=== PATIENT | female | born 1975 | race Caucasian/White ===

== ENCOUNTER 2019-11-29 14:42 | Inpatient (IN) | payer BC ==
[~2019-11-29] VITALS: Ht 157.5 cm; Wt 117.5 kg
[2019-11-29] MEDS ORDERED: ONDA4TAB11 PO (18:17)
[2019-11-29] MEDS ORDERED: OMEP40CA13 PO (18:17)
[2019-11-29] MEDS ORDERED: AMPH15TA2 PO (18:17)
[2019-11-29] MEDS ORDERED: DIAZ10TA PO ×2 (18:17)
[2019-11-29] MEDS ORDERED: QUET100T PO (18:17)
[2019-11-29] MEDS ORDERED: L-NO1TBD16 PO (18:17)
[2019-11-29] MEDS ORDERED: BUPR-51 PO (18:17)
[2019-11-29] MEDS ORDERED: SODI56GE9 DT (18:17)
[2019-11-29] MEDS ORDERED: HYDR2TAB4 PO (18:17)
[2019-11-29] MEDS ORDERED: NALO4SPR NS (18:17)
[2019-11-29] MEDS ORDERED: LAMO200T10 PO (18:17)
[2019-11-29] MEDS ORDERED: METF-494 PO (18:17)
[2019-11-29] MEDS ORDERED: FENT1PAT5 TD (18:17)
[2019-11-29] MEDS ORDERED: ACET-2605 PO (18:17)
--- NOTE | 2019-11-29 18:21 | NUR ---
Patient came around 525pm via ambulance with 2 EMT in stable condition.AOx4. Allergy to NSAIDS. Full code. DX: S/P left knee Arthroplasty. skin abrasion on left heel noted. no drainage, dry and no foul smell, no redness noted. Left knee operation covered with surgical dressing,dry and intact. picture taken. Patient complaint of pain. MD Alcantar and MD Garcia notified. Medrecon relayed to MD Alcantar. MD Garcia ordered pain medication for pain management. Nasal swab for MRSA test will send to lab. will continue monitor
[2019-11-29] MEDS ORDERED: HYDROMORPHONE HCL 2 MG TABLET PO PRN (18:45)
[2019-11-29] MEDS ORDERED: ONDANSETRON ODT 4 MG TAB.RAPDIS SL PRN (18:45)
[2019-11-29] MEDS ORDERED: METF-440 PO (19:11)
[2019-11-29] MEDS ORDERED: BUPR75TA8 PO (19:13)
[2019-11-29] MEDS: HYDROCODONE/APAP 10-325 MG TABLET PO PRN (19:17)
--- NOTE | 2019-11-29 19:30 | NUR ---
Received patient awake and alert, busy talking on her cell phone. No s/s of pain/discomforts at this time. Left knee dressing clean, dry and intact with restricted mobility/flexion noted on affected area. Safety measures and fall precaution maintained. Seen and evaluated by Dr. Alcantar. Routine admission care continuos. Plan of care initiated.
[2019-11-29] MEDS ORDERED: ARIP10TA9 PO (19:34)
[2019-11-29 20:00] VITALS: BP 133/77
[2019-11-29] MEDS: LAMOTRIGINE 200 MG TABLET PO SCH (20:51)
[2019-11-29] MEDS: ARIPIPRAZOLE 10 MG TABLET PO SCH (20:51)
[2019-11-29] MEDS: DIAZEPAM 10 MG TABLET PO PRN (20:57)
[2019-11-29] MEDS: OXYCODONE HCL 10 MG TAB.SR.12H PO SCH (21:31)
[2019-11-29] MEDS ORDERED: ACETAMINOPHEN ES 500 MG TABLET PO SCH (22:00)
[2019-11-30] MEDS: HYDROCODONE/APAP 10-325 MG TABLET PO PRN ×3 (00:53→14:33)
[2019-11-30 04:00] VITALS: BP 132/78
[2019-11-30] MEDS: PANTOPRAZOLE SODIUM 40 MG TABLET.DR PO SCH (05:34)
[2019-11-30] MEDS: OXYCODONE HCL 10 MG TAB.SR.12H PO SCH ×2 (05:34→13:06)
--- NOTE | 2019-11-30 05:44 | NUR ---
Shift End Report: Vs stable. Medicated with [place] once the whole night and Oxycontin routine pain meds as ordered with moderate effect. Patient complaining that pain medications she's getting now is not suffice to relieve her pain considering that she's getting more stronger ones prior to coming here. Will endorse to oncoming nurse. All needs attended and met. No significant event reported all night. Slept in between care. Continue current rehab plan of care.
[2019-11-30 08:00] VITALS: BP 131/75
--- NOTE | 2019-11-30 08:00 | NUR ---
Patient in bed awake at this time, stating she is in pain and crying at the start of the shift. Explained to patient will give due pain pill before PT/OT. Pt. is AAO 4, able to express all needs. No acute distress. Vital signs stable. Left knee surgical site with original dressing. NO bleeding or any s/sx of infection noted. BLE heels elevated. Call light within easy reach and will continue with care.
[2019-11-30] MEDS: METFORMIN HCL 500 MG TABLET PO SCH ×2 (08:07→17:04)
[2019-11-30] MEDS: buPROPion 75 MG TABLET PO SCH ×3 (08:08→17:04)
[2019-11-30] MEDS ORDERED: [UNRECOGNIZED DRUG - OTHER] PO SCH (09:00)
[2019-11-30] MEDS ORDERED: buPROPion XL 150 MG TAB.SR.24H PO SCH (09:00)
[2019-11-30] MEDS ORDERED: [UNRECOGNIZED DRUG - OTHER] PO SCH (09:00)
[2019-11-30] MEDS ORDERED: Medication Not On Formulary EA (Omeprazole 40 MG) PO SCH (09:00)
[2019-11-30] MEDS ORDERED: AMPHET ASP PO SCH (09:00)
[2019-11-30] MEDS ORDERED: AMPHET PO SCH (09:00)
[2019-11-30] MEDS ORDERED: QUETIAPINE FUMARATE 100 MG TABLET PO PRN (09:00)
[2019-11-30] MEDS ORDERED: D AMPHET PO SCH (09:00)
[2019-11-30] MEDS: DIAZEPAM 10 MG TABLET PO PRN ×2 (09:42→20:25)
--- NOTE | 2019-11-30 10:00 | NUR ---
patient noted getting anxious and Valium 15mg PO administered and effective.
[2019-11-30] MEDS ORDERED: NALOXONE HCL 0.4 MG/ML AMPUL IV PRN (10:30)
--- NOTE | 2019-11-30 11:00 | NUR ---
Paged Dr. Garcia regarding patient's pain medication and adjustments.
[2019-11-30 14:13] LABS: *URINE HCG, QUAL NEGATIVE (NEGATIVE)
[2019-11-30 16:00] VITALS: BP 110/64
--- NOTE | 2019-11-30 18:09 | NUR ---
Patient in stable condition at this time. Did PT/OT during shift. Patient able to get up and sit on w/c for therapy, uses bed side commode. Patient seen by Dr. Garcia and with new orders for pain medications. Patient eating dinner at this time. Vital signs stable. NO c/o pain currently. Safety measures in place, call light left within easy reach and will continue with care.
--- NOTE | 2019-11-30 19:30 | NUR ---
Awake, alert during initial rounds and complaining about her pain medications that was not ordered/given. Presenting severe pain, irritability, malave, restless. and needy. Asking things at the same time, snacks, pain medications, bedside commode. Instructed patient to be patient and she'll get whatever she wants but in a one at a time manner. Ice pack placed on the left knee incision site to relieve/ease the pain while clarifying new pain meds ordered. Continue to monitor.
[2019-11-30] MEDS: HYDROMORPHONE HCL 2 MG TABLET PO PRN ×2 (19:50→23:35)
--- NOTE | 2019-11-30 19:50 | NUR ---
Dilaudid given as ordered/needed for complaint of pain. Will monitor. Snacks and drinks provided per her request.
[2019-11-30 20:00] VITALS: BP 109/67
[2019-11-30] MEDS: ARIPIPRAZOLE 10 MG TABLET PO SCH (20:23)
[2019-11-30] MEDS: FENTANYL 25 MCG/HR PATCH EACH TD SCH (20:23)
[2019-11-30] MEDS: LAMOTRIGINE 200 MG TABLET PO SCH (20:25)
[2019-12-01 04:00] VITALS: BP 129/70
[2019-12-01] MEDS: HYDROMORPHONE HCL 2 MG TABLET PO PRN ×4 (06:46→20:25)
[2019-12-01] MEDS: PANTOPRAZOLE SODIUM 40 MG TABLET.DR PO SCH (06:46)
--- NOTE | 2019-12-01 06:59 | NUR ---
Shift End Report: VS stable. Been medicated with Dilaudid as ordered and needed for pain with help besides Fentanyl patch. All needs attended and met. Continue to monitor. Continue current rehab plan of care. Left knee dressing intact and clean. Sleeping at this time.
--- NOTE | 2019-12-01 08:12 | NUR ---
Patient awake and eating breakfast right now, no acute distress or SOB noted. Vital signs stable for patient. Safety measures in place and will continue with care.
[2019-12-01] MEDS: buPROPion 75 MG TABLET PO SCH ×3 (08:26→17:53)
[2019-12-01] MEDS: METFORMIN HCL 500 MG TABLET PO SCH ×2 (08:26→17:53)
[2019-12-01 08:27] VITALS: BP 136/63
[2019-12-01] MEDS: DIAZEPAM 10 MG TABLET PO PRN ×2 (08:27→20:24)
[2019-12-01 14:34] VITALS: BP 114/62
--- NOTE | 2019-12-01 19:12 | NUR ---
Vital signs stable, all due meds and prn pain medications administered as ordered and scheduled. No c/O pain at this time. NO swelling or any s/sx of infection noted on left knee surgical site. patient on continuos PT/OT. Needs attended and met, safety measures in place, call light left at bed side, endorsed to next shift and will continue with care.
[2019-12-01 20:03] VITALS: BP 109/56
[2019-12-01] MEDS: LAMOTRIGINE 200 MG TABLET PO SCH (20:25)
[2019-12-01] MEDS: ARIPIPRAZOLE 10 MG TABLET PO SCH (20:25)
--- NOTE | 2019-12-01 22:00 | NUR ---
received patient lying in bed. Awake, alert AxOx4 complaining about pain, wants pain medication. Irritable having to wait, administered Dilaudid, effective. all due medications administered. Pt requested Valium for anxiety, administered. requested snacks, and to use bedside commode. Skin intact warm and dry to touch. Ice pack placed on the left knee incision site to relieve pain. All needs attended at this time. Safety measure in place, call light and personal items within reach. Will Continue to monitor through the night.
[2019-12-02] MEDS: HYDROMORPHONE HCL 2 MG TABLET PO PRN ×6 (00:25→21:27)
--- NOTE | 2019-12-02 01:34 | NUR ---
PATIENT REQUESTED PAIN MEDICATION, ADMINISTERS DILAUDID @0025, EFFECTIVE PATIENT IS COMFORTABLE AND SLEEPING. WILL CONTINUE TO MONITOR.
[2019-12-02] MEDS: QUETIAPINE FUMARATE 100 MG TABLET PO PRN (02:39)
--- NOTE | 2019-12-02 02:40 | NUR ---
ADMINISTERED SEROQUEL PER PATIENT REQUESTED HAVING DIFFICULTY SLEEPING. REPOSITIONED PT AND MADE COMFORTABLE, ALL PERSONAL ITEMS WITH REACH. CONTINUE TO MONITOR THROUGH THE NIGHT.
[2019-12-02 04:03] VITALS: BP 112/62
--- NOTE | 2019-12-02 05:41 | NUR ---
PATIENT REQUESTED PAIN MEDICATION, ADMINISTERS DILAUDID @0025, EFFECTIVE PATIENT IS COMFORTABLE AND SLEEPING. NO EVENT REPORTED TONIGHT. PATIENT STATED SHE DID NOT SLEEP WELL TONIGHT KEPT WAKING UP EVERY [address]Y MEASURE IN PLACE, CALL LIGHT AND ALL PERSONAL ITEMS WITHIN REACH. ALL NEEDS ATTENDED TO. KEPT CLEAN DRY AND COMFORTABLE. WILL ENDORSE REPORT TO AM SHIFT, CONTINUE PLAN OF CARE. .
[2019-12-02 05:53] LABS: BASOPHILS # (AUTO) 0.1 K/uL (0.0-8.0); BASOPHILS % (AUTO) 1.2 % (0.0-2.0); EOSINOPHILS # (AUTO) 0.2 K/uL (0.0-0.7); EOSINOPHILS % (AUTO) 3.1 % (0.0-7.0); HEMOGLOBIN 10.7 g/dL (10.9-14.3); LYMPHOCYTES # (AUTO) 1.9 K/uL (20.0-40.0); LYMPHOCYTES % (AUTO) 26.9 % (20.5-51.5); MEAN CORPUSCULAR HEMOGLOBIN 31.7 uug (24.7-32.8); MEAN CORPUSCULAR HGB CONC 34 g/dL (32.3-35.6); MEAN CORPUSCULAR VOLUME 92.2 fL (75.5-95.3); MONOCYTES # (AUTO) 0.7 K/uL (2.0-10.0); MONOCYTES % (AUTO) 9.5 % (0.0-11.0); NEUTROPHILS # (AUTO) 4.1 K/uL (1.8-8.9); NEUTROPHILS % (AUTO) 59.3 % (38.5-71.5); PLATELET COUNT (AUTO) 298 K/uL (179-408); RED BLOOD CELL COUNT(AUTO) 3.36 MIL/uL (3.63-4.92); WHITE BLOOD COUNT (AUTO) 6.9 K/uL (3.8-11.8)
[2019-12-02 05:57] LABS: CREATININE 0.7 mg/dL (0.6-1.3); POTASSIUM 4.1 mmol/L (3.5-5.1)
[2019-12-02] MEDS: PANTOPRAZOLE SODIUM 40 MG TABLET.DR PO SCH (07:04)
[2019-12-02 08:00] VITALS: BP 121/69
[2019-12-02] MEDS: METFORMIN HCL 500 MG TABLET PO SCH ×2 (08:14→17:00)
[2019-12-02] MEDS: buPROPion 75 MG TABLET PO SCH ×3 (08:14→17:00)
[2019-12-02] MEDS: DIAZEPAM 10 MG TABLET PO PRN ×2 (08:47→21:27)
[2019-12-02] MEDS ORDERED: FENTANYL 50 MCG/HR PATCH TD SCH (09:00)
--- NOTE | 2019-12-02 10:29 | NUR ---
Received patient awake in bed. Alert and orientedx4. Patient continue therapy for increase strenght and endurance. Patient refuse therapy in the gym. Patient agree therapy in the room. Patient continue pain management prior to therapy and if needed- given. Patient continue diazepam PRN for anxiety- given. not in distress. Patient continue off load of heel while in bed. Patient skin care provided. will continue monitor for safety.
--- NOTE | 2019-12-02 14:04 | NUR ---
INDIVIDUALIZED PLAN OF CARE
[2019-12-02] MEDS ORDERED: ACETAMINOPHEN 325 MG TABLET PO SCH (14:15)
--- NOTE | 2019-12-02 16:03 | NUR ---
INTERDISCIPLINARY TEAM CONFERENCE
[2019-12-02 16:09] VITALS: BP 118/65
[2019-12-02 20:03] VITALS: BP 129/65
[2019-12-02] MEDS: ARIPIPRAZOLE 10 MG TABLET PO SCH (21:23)
[2019-12-02] MEDS: LAMOTRIGINE 200 MG TABLET PO SCH (21:29)
[2019-12-03] MEDS: HYDROMORPHONE HCL 2 MG TABLET PO PRN ×6 (02:13→22:39)
[2019-12-03 04:03] VITALS: BP 122/68
--- NOTE | 2019-12-03 04:52 | NUR ---
Received patient in bed. AAO x 4. Able to make needs known. No acute distress or SOB was noted. On room air. Complained of pain on her left knee, rated the pain 9/10, PRN Dilaudid 2 mg tab administered and effective. Ice bag provided to control pain. Physical assessment done. safety measures maintained, fall prevention observed. Skin assessed. All due medications administered and tolerated well. All needs attended promptly. Bed in locked and low position, side rails up x2 for safety, bed alarm on. Call light and frequently using items within reach. Continue to monitor and will endorse to day shift nurse accordingly.
[2019-12-03] MEDS: PANTOPRAZOLE SODIUM 40 MG TABLET.DR PO SCH (06:00)
[2019-12-03] MEDS: DIAZEPAM 10 MG TABLET PO PRN ×2 (08:33→21:17)
[2019-12-03] MEDS: METFORMIN HCL 500 MG TABLET PO SCH ×2 (08:34→17:25)
[2019-12-03] MEDS: buPROPion 75 MG TABLET PO SCH ×3 (08:34→17:24)
--- NOTE | 2019-12-03 08:57 | NUR ---
Received patient in room awake and alert x 4, no acute distress noted. In stable condition. All due morning meds administered. Patient requested for Valium because she was feeling anxious; Valium 15mg administered as ordered and monitoring patient. Safety measures in place and will continue with care.
--- NOTE | 2019-12-03 10:20 | NUR ---
Patient asked for pain pill before PT for pain on the left knee, Dilaudid 2mg 1 tab administered for pain 7/10 and tolerated.
[2019-12-03 16:30] VITALS: BP 126/76
--- NOTE | 2019-12-03 18:30 | NUR ---
Patient in bed resting at this time with continuous PT/OT therapy. All due meds administered as ordered and scheduled and tolerated well. Left knee surgical site intact and dry. NO s/sx of infection noted on surgical site. Vital signs stable. Needs attended and will continue with care.
[2019-12-03 20:44] VITALS: BP 129/79
[2019-12-03] MEDS: LAMOTRIGINE 200 MG TABLET PO SCH (21:01)
[2019-12-03] MEDS: LOPERAMIDE HCL 2 MG CAPSULE PO PRN (21:01)
[2019-12-03] MEDS: ARIPIPRAZOLE 10 MG TABLET PO SCH (21:02)
[2019-12-03] MEDS: FENTANYL 25 MCG/HR PATCH EACH TD SCH (21:03)
[2019-12-04] MEDS: HYDROMORPHONE HCL 2 MG TABLET PO PRN ×5 (02:45→20:08)
--- NOTE | 2019-12-04 04:07 | NUR ---
Received patient in bed. AAO x 4. Able to make needs known. No acute distress or SOB was noted. On room air. Complained of pain on her left knee, rated the pain 8/10, PRN Dilaudid 2 mg tab administered and effective. She also felt agitated, PRN Volume 10 mg administered and effective. All due medications administered and well tolerated. Physical assessment done. safety measures maintained, fall prevention observed. Assisted her to the bathroom as needed. Skin assessed. All due medications administered and tolerated well. All needs attended promptly. Bed in locked and low position, side rails up x2 for safety, bed alarm on. Call light and frequently using items within reach. Continue to monitor and will endorse to day shift nurse accordingly.
[2019-12-04 05:51] VITALS: BP 115/58
[2019-12-04] MEDS: PANTOPRAZOLE SODIUM 40 MG TABLET.DR PO SCH (06:40)
--- NOTE | 2019-12-04 08:00 | NUR ---
Pt received awake, somewhat anxious about being wanting to be discharged tomorrow. Pt has generalized chronic pain, but no acute pain. Pt was compliant with her medications. VS stable. Pt needs assistance with activities. No signs of infection. Pt is compliant with physical therapy.
[2019-12-04] MEDS: buPROPion 75 MG TABLET PO SCH ×3 (08:53→17:14)
[2019-12-04] MEDS: METFORMIN HCL 500 MG TABLET PO SCH ×2 (08:53→17:14)
[2019-12-04 11:28] VITALS: BP 112/63
[2019-12-04] MEDS: DIAZEPAM 10 MG TABLET PO PRN ×2 (12:30→20:11)
[2019-12-04] MEDS: LOPERAMIDE HCL 2 MG CAPSULE PO PRN ×2 (13:31→20:11)
[2019-12-04 16:21] VITALS: BP 119/58
[2019-12-04 20:00] VITALS: BP 120/58
[2019-12-04] MEDS: ARIPIPRAZOLE 10 MG TABLET PO SCH (20:07)
[2019-12-04] MEDS: LAMOTRIGINE 200 MG TABLET PO SCH (20:08)
--- NOTE | 2019-12-04 21:45 | NUR ---
Received patient lying in bed. Awake, alert AxOx4 complaining about pain, wants pain medication. No signs of acute distress noted. Vital signs stable. Irritable having to wait, administered Dilaudid, effective. All due medications administered. Pt requested Valium for anxiety, administered. Patient verbally expressed her desire to go home. Skin intact warm and dry to touch, no changes to report. All needs attended at this time. Safety measure in place, call light and personal items within reach. Will Continue to monitor through the night.
[2019-12-04] MEDS: QUETIAPINE FUMARATE 100 MG TABLET PO PRN (22:31)
--- NOTE | 2019-12-04 22:31 | NUR ---
patient having difficulty falling asleep, requested Quetiapine administered.
[2019-12-05] MEDS: HYDROMORPHONE HCL 2 MG TABLET PO PRN ×4 (01:51→14:34)
[2019-12-05 04:00] VITALS: BP 113/60
--- NOTE | 2019-12-05 05:48 | NUR ---
patient slept well through the night. Vs stable. Medicated with Dilaudid pain med per patient request. no significant events reported, patient kept comfortable, All needs attended and met. safety measures in place. Provided pt with snacks. Will endorse to oncoming nurse. Continue current rehab plan of care.
[2019-12-05] MEDS: PANTOPRAZOLE SODIUM 40 MG TABLET.DR PO SCH (06:05)
[2019-12-05 08:00] VITALS: BP 105/57
[2019-12-05] MEDS: METFORMIN HCL 500 MG TABLET PO SCH (08:23)
[2019-12-05] MEDS: buPROPion 75 MG TABLET PO SCH ×2 (08:23→13:06)
[2019-12-05] MEDS: DIAZEPAM 10 MG TABLET PO PRN (08:25)
--- NOTE | 2019-12-05 09:47 | NUR ---
Receive patient awake in bed in stable condition. Assisted from bed to bathroom with walker. tolerated well. Patient requested discharge to home. internet cafe manager aware. MD Garcia notified. Patient for left knee x-ray prior discharge. Patient will discharge around 2pm. Patient continue pain management if needed. Patient compliant and tolerate therapy well. will continue monitor
--- NOTE | 2019-12-05 15:07 | NUR ---
PATIENT DISCHARGE TO HOME VIA PRIVATE CAR WITH FRIEND AROUND 1450 IN STABLE CONDITION. PATIENT DISCHARGE INSTRUCTION GIVEN. VERBALIZE UNDERSTANDING. PATIENT DISCHARGE PRESCRIPTION AND BELONGINGS GIVEN. TOOK WOUND PICTURE. ADVICE PATIENT FOR SCHEDULE FF UP CONSULT. PATIENT IS THANKFUL FOR THE CARE GIVEN.
== END 2019-12-05 14:50 | disposition home health service (06) | DRG 560 ==
PROVIDERS: ADMIT Physical Medicine & Rehabilitation Pain Medicine; ATTEND Physical Medicine & Rehabilitation Pain Medicine
DX: Z47.1 Aftercare following joint replacement surgery (principal); F31.81 Bipolar II disorder; Z96.652 Presence of left artificial knee joint; Z96.649 Presence of unspecified artificial hip joint; Z98.84 Bariatric surgery status; E11.9 Type 2 diabetes mellitus without complications; M43.17 Spondylolisthesis, lumbosacral region; Z82.5 Family history of asthma and other chronic lower respiratory diseases; G89.29 Other chronic pain; M54.5 Low back pain; M17.12 Unilateral primary osteoarthritis, left knee; Z88.8 Allergy status to other drugs, medicaments and biological substances; E66.9 Obesity, unspecified
CPT/HCPCS: 36415; 84703; 85025; A4663